=== PATIENT | female | born 1985 | race African-American/Black ===

== ENCOUNTER 2024-08-01 21:22 | Emergency (ER) | payer MEDICAID ==
[~2024-08-01] VITALS: Ht 154.9 cm; Wt 84.0 kg
[2024-08-01 21:26] VITALS: O2SAT 99
[2024-08-01 21:32] VITALS: BP 130/91; PULSE 96; RESP 18; TEMP 37.1; O2SAT 98
[2024-08-01] MEDS: ACETAMINOPHEN 325MG TABLET PO STA (22:48)
[2024-08-01] MEDS: KETOROLAC 15MG/ML VIAL IM ONE (23:03)
[2024-08-01] MEDS ORDERED: IBUP-2029 MT (23:28)
[2024-08-01 23:42] LABS: INFLUENZA TYPE A Presumptive Negative (Pres. Neg.); INFLUENZA TYPE B Presumptive Negative (Pres. Neg.)
== END 2024-08-01 23:34 | disposition home or self-care (01) ==
LOC: ER 21:22
DX: B34.9 Viral infection, unspecified (principal)
CPT/HCPCS: 71045; 81025; 87804; 99284